=== PATIENT | male | born 1980 | race Caucasian/White ===

== ENCOUNTER 2019-08-31 17:06 | Emergency (ER) | payer OTHER, SELFPAY ==
--- NOTE | ~2019-08-31 | XR_ITS ---
EXAMINATION: XR chest 2V DATE: 08/31/2019 17:49 INDICATION: Cough and shortness of breath TECHNIQUE: PA and lateral views of the chest were obtained. COMPARISON: None FINDINGS: The lungs are clear with no focal airspace opacities, pulmonary edema, pleural effusion or pneumothor ax. The cardiomediastinal silhouette is normal. Visualized bones and soft tissues are unremarkable. IMPRESSION: 1. No acute cardiopulmonary disease. Reviewed, dictated and finalized at location A. [facility]
[2019-08-31 17:17] VITALS: BP 148/94; PULSE 91; RESP 18; TEMP 36.9; O2SAT 99
--- NOTE | 2019-08-31 17:38 | ED.GENADULT ---
HPI - General Adult General Chief complaint: Upper Respiratory Infection Stated complaint: cough Time Seen by Provider: 08/31/19 17:38 Source: patient Mode of arrival: ambulatory Limitations: no limitations History of Present Illness HPI narrative: 39-year-old male patient presents to the [facility] with complaints of cough and cold symptoms. Patient states about a week ago he thinks he might of had influenza B because his significant other's daughter was diagnosed with influenza B and he had fevers, chills, body aches. Patient states most of that has resolved however he continues to have a cough, shortness of breath but denies any chest pain today. Patient states the cough is worse when he is laying down. Patient states he still has little bit of a runny nose and congestion. Denies any fevers for the past couple of days. Denies any ear pain. Denies any nausea, vomiting or diarrhea. Patient requesting x-ray to make sure he does not have pneumonia. Patient denies being a smoker. Patient denies any history of lung disease. Related Data Home Medications Medication Instructions Recorded Confirmed Alphonso DayQuil-NyQuil 08/31/19 esomeprazole magnesium [Nexium] 20 mg PO DAILY 08/31/19 08/31/19 Allergies Allergy/AdvReac Type Severity Reaction Status Date / Time amoxicillin Allergy Unknown Rash Verified 08/31/19 17:26 Review of Systems Review of Systems: Narrative: CONSTITUTIONAL: Denies fever, chills, or sweats. EYES: Denies visual changes, redness, or discharge. ENT: Positive rhinorrhea, congestion, denies sore throat, or otalgia. CARDIOVASCULAR: Denies chest pain, palpitations, or edema. RESPIRATORY: Positive cough with dyspnea. GASTROINTESTINAL: Denies abdominal pain, nausea, vomiting, or diarrhea. GENITOURINARY: Denies dysuria or hematuria. SKIN: Denies rash or itching. MUSCULOSKELETAL: Denies back pain, joint pain, or myalgia. NEUROLOGIC: Denies headache, numbness, or weakness. PSYCHIATRIC: Denies anxiety or depression. [facility] Family History Family History (Updated 04/27/11 @ 16:39 by DOCTOR UNKNOWN) Grandparent Diabetes mellitus Social History Social History Smoking status: Never smoker Alcohol intake: current Comments At the time of my signature I agree with nursing past medical history, surgical, social, and family history. There is no relevant family history pertinent to the presenting complaint. Exam Narrative: Exam Narrative: GENERAL: Well-appearing, well-nourished, and in no acute distress. HEAD: Normocephalic, atraumatic. EYES: PERRLA and EOMI. ENT: Nares with erythema and edema noted bilaterally, clear rhinorrhea, no epistaxis. Mucous membranes moist. Posterior pharynx with slight erythema but no tonsillar large but no exudates or lesions present. Bilateral TMs are clear the right TM does have a little bit of fluid noted behind it. NECK: Supple. No lymphadenopathy CHEST: Clear to auscultation. No respiratory distress. Patient able talk in clear complete sentences. No tripoding noted. HEART: Regular rate and rhythm. No murmur heard. Normal peripheral pulses. ABDOMEN: Soft, nontender, nondistended, normal active bowel sounds. EXTREMITIES: Normal range of motion. No edema. SKIN: Warm, dry, no rash. NEURO: No focal deficits. Alert and oriented x3. Course Reevaluation(s) Reevaluation #1: Notify patient that his chest x-ray is negative for any pneumonia today. Discussed with him that I do believe a lot of his symptoms are coming from the sinus drainage and therefore we will discharge him home with a daily antihistamine, nasal steroid and also discharge him home with Tessalon Perles to help with the cough and if his shortness of breath or coughing gets severe and I am also discharge him home with an albuterol inhaler that he can use. Patient verbalized understanding. Discussed with patient if his symptoms continue to worsen with worsening ch
== END 2019-08-31 18:32 | disposition home or self-care (01) ==
PROVIDERS: Emergency Provider Nurse Practitioner Family
DX: J06.9 Acute upper respiratory infection, unspecified (principal)
CPT/HCPCS: 71046; 99213; G0463